=== PATIENT | male | born 1985 | race Two or more races ===

== ENCOUNTER → 2024-06-19 | Emergency (ER) | payer OTHER ==
[~2024-06-19] VITALS: Ht 180.3 cm; Wt 122.5 kg
[~2024-06-19] MED LIST: ACETAMINOPHEN 500 MG GEL..CAP PO ONE
[2024-06-19 19:02] LABS: HEMATOCRIT 49.9 % (39.0-48.0); HEMOGLOBIN 17.3 g/dL (13-16.00); MEAN CELL VOLUME 91.7 fL (80.0-100.00); MEAN CORPUSCULAR HEMOGLOBIN 31.8 pg (27.00-32.0); MEAN CORPUSCULAR HGB CONC 34.7 g/dl (32.0-36.0); PLATELET COUNT 331 K/uL (150-450); RED BLOOD COUNT 5.44 M/uL (4.00-6.00); RED CELL DISTRIBUTION WIDTH 13.6 % (11.5-14.5)
[2024-06-19 19:22] LABS: ALBUMIN 4.3 gm/dL (3.4-5.0); BILIRUBIN TOTAL 0.71 mg/dL (0.3-1.2); CALCIUM 9.7 mg/dL (8.5-10.1); CREATININE SERUM 1.18 mg/dL (0.70-1.30); GFR 68.37; GLOBULINA 4.4 G/DL (2.4-3.5); POTASSIUM 3.67 mEq/L (3.5-5.1); TOTAL PROTEIN 8.7 gm/dL (6.4-8.2)
== END | disposition home or self-care (01) ==
LOC: ER 18:03
PROVIDERS: Emergency Medicine
DX: R55 Syncope and collapse (principal); Z20.822 Contact with and (suspected) exposure to COVID-19